=== PATIENT | male | born 1970 | race Caucasian/White ===

== ENCOUNTER 2021-04-08 07:36 | Emergency (ER) | payer OTHER, SELFPAY ==
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
--- NOTE | ~2021-04-08 | XR_ITS ---
EXAMINATION: XR ankle LT min 3V, XR foot LT min 3V DATE: 04/08/2021 08:42 INDICATION: Left ankle and toe injury TECHNIQUE: 1. Anteroposterior, mortise, additional oblique and lateral view of the left ankle were obtained. 2. Dorsoplantar, two oblique and lateral views of the left foot were obtained. COMPARISON: None. FINDINGS: Comminuted fracture of the distal phalanx of the left great toe which involves both the tuft as well as the proximal articular surface. There is approximately 2 mm step-off along the articular surface. There is some gas in the adjacent soft tissues which suggests the possibility of an open/compound fra cture. Otherwise normal alignment of the left foot and ankle. No other fractures identified. Minimal osteoarthritis at the first metatarsophalangeal joint and at the second and third tarsal metatarsal j oints. No ankle joint effusion. IMPRESSION: 1. Comminuted intra-articular fracture of the left first distal phalanx with 2 mm step-off at the art icular surface. Small amount of associated soft tissue gas suggesting this may be open/compound. Reviewed, dictated and finalized at location A. ING APPLICATOR IMPRESSION: 1. Comminuted intra-articular fracture of the left first distal phalanx with 2 mm step-off at the articular surface. Small amount of associated soft tissue ga s suggesting this may be open/compound.
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
--- NOTE | ~2021-04-08 | XR_ITS ---
EXAMINATION: XR knee LT 3V DATE: 04/08/2021 08:42 INDICATION: Left knee pain TECHNIQUE: Anteroposterior, oblique and crosstable lateral views of the left knee were obtained COMPARISON: None. FINDINGS: Alignment is normal. No fracture. Enthesophyte at the proximal pole of the patella. Small joint effu romero at the suprapatellar pouch without layering lipohemarthrosis. Prepatellar soft tissue swelling. IMPRESSION: 1. No acute osseous abnormality. Reviewed, dictated and finalized at location A. SPRAYER
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
[2021-04-08 07:45] VITALS: BP 133/90; PULSE 77; RESP 18; O2SAT 99
--- NOTE | 2021-04-08 07:46 | ECG_ITS ---
Measurements Intervals [place] Rate: 58 P: 55 MI: 167 QRS: 33 QRSD: 105 T: 64 QT: 406 QTc: 401 Interpretive Statements SINUS BRADYCARDIA WITH SINUS ARRHYTHMIA INCOMPLETE RIGHT BUNDLE BRANCH BLOCK BORDERLINE ECG Electronically Signed On 04-09-2021 7:10:27 CONTROLS ENGINEER by Tommy Lyle D.O.
[2021-04-08 07:49] VITALS: BP 128/95; PULSE 94; RESP 16; TEMP 36.3; O2SAT 100
--- NOTE | 2021-04-08 07:55 | PC.NURSE ---
Pt to radiology
--- NOTE | 2021-04-08 08:25 | PC.NURSE ---
Pt returned from radiology. Lab notified pt is back in room.
[2021-04-08 08:28] VITALS: BP 129/87; PULSE 58; RESP 16; O2SAT 98
--- NOTE | 2021-04-08 08:30 | PC.NURSE ---
Lab at bedside.
[2021-04-08 08:34] VITALS: BP 129/87; PULSE 99; RESP 16; O2SAT 99
[2021-04-08 08:41] LABS: Basophils Absolute Auto 0.06 K/mm3 (0.00-0.10); Basophils Percent Auto 0.3 % (0.0-1.0); Eosinophils Absolute Auto 0.06 K/mm3 (0.02-0.50); Eosinophils Percent Auto 0.3 % (1.0-6.0); Hematocrit 40.7 % (40.0-54.0); Hemoglobin 13.9 g/dL (14.0-18.0); Immature Granulocyte Absolute 0.06 K/mm3 (0.00-0.00); Immature Granulocyte Percent A 0.3 % (0.0-0.0); Lymphocytes Absolute Auto 1.24 K/mm3 (1.10-4.50); Lymphocytes Percent Auto 7.1 % (18.0-42.0); Mean Corpuscular HGB Conc 34.2 g/dL (32.0-36.0); Mean Corpuscular Hemoglobin 30.8 pg (27.0-31.0); Mean Corpuscular Volume 90.2 fL (78.0-102.0); Mean Platelet Volume 9.1 fl (8.7-11.0); Monocytes Absolute Auto 0.94 K/mm3 (0.10-0.90); Monocytes Percent Auto 5.4 % (2.0-11.0); Neutrophils Absolute Auto 15.1 K/mm3 (1.7-7.2); Neutrophils Percent Auto 86.6 % (50.0-70.0); Platelet Count Result 252 K/mm3 (150-420); Red Blood Count 4.51 M/mm3 (4.70-6.10); Red Cell Distribution Width 12.7 % (11.6-14.4); White Blood Count 17.5 K/mm3 (4.8-10.8)
[2021-04-08 08:50] LABS: Partial Thromboplastin Time 28.8 SEC (23.90-30.70); Prothrombin Time 10.4 Seconds (9.50-12.10)
[2021-04-08 08:51] LABS: Alanine Aminotransferase 24 U/L (16-63); Albumin Level 3.8 g/dL (3.4-5.0); Alkaline Phosphatase 120 U/L (46-116); Anion Gap 13 mmol/L (8-16); Aspartate Amino Transferase 23 U/L (15-37); Bilirubin,Total 0.4 mg/dL (0.00-1.00); Blood Urea Nitrogen 14 mg/dL (7-18); Calcium 8.9 mg/dL (8.5-10.1); Carbon Dioxide 23 mmol/L (21-32); Chloride 102 mmol/L (98-108); Creatine Kinase 416 U/L (39-308); Estimated CRCL calculation 99 ml/min; Estimated Glomerular Filt Rate > 60; Glucose 95 mg/dL (70-99); Osmolality Calculated 286 mOsm/kg (285-295); Potassium 3.6 mmol/L (3.5-5.1); Sodium 138 mmol/L (136-145); Total Protein 7.1 g/dL (6.4-8.2)
[2021-04-08 08:52] LABS: Ethanol 4 mg/dL (0-6)
[2021-04-08 08:54] LABS: Appearance Urine Clear (Clear); Bilirubin Urine Negative (Negative); Color Urine Yellow (Yellow); Glucose Urine UA Negative (Negative); Ketones Urine Trace (Negative); Leukocyte Esterase Ur Negative (Negative); Nitrate Urine Negative (Negative); Protein Urine Negative (Negative); Specific Grav Ur 1.025 (1.010-1.020); Urobilinogen Urine >=8.0 mg/dL (0.2-1.0)
[2021-04-08 08:56] LABS: Lactic Acid Reflex 0.6 mmol/L (0.4-2.0)
[2021-04-08 09:03] LABS: Amphetamine Screen Urine Positive (Negative); Barbiturate Screen Urine Negative (Negative); Benzodiazepines Screen Urine Negative (Negative); Cannabinoid Screen Urine Positive (Negative); Cocaine Screen Urine Negative (Negative); Methadone Screen Urine Negative (Negative); Opiate Screen Urine Negative (Negative); Phencyclidine Screen Urine Negative (Negative)
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
[2021-04-08 09:17] LABS: Add Urine Microscopic? YES; Bacteria Urine Trace /hpf; Blood Urine Trace-Intact (Negative); RBC Urine 0-2 /hpf (0-2); Squamous Epithelial Cell Urine Rare /hpf (Few); WBC Urine None seen /hpf (0-3)
[2021-04-08 09:18] LABS: Mucus Urine Few /lpf
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
[2021-04-08] MEDS: MORPHINE SULFATE (*CRX) 4 MG/ML INJ IM (09:25)
[2021-04-08] MEDS: SODIUM CHLORIDE 0.9% IV 1,000 ML 999 ML IV CONT (09:34)
[2021-04-08 09:49] VITALS: BP 140/98; PULSE 83; RESP 20; O2SAT 98
--- NOTE | 2021-04-08 09:53 | PC.NURSE ---
SIMON WRAP APPLIED TO LEFT FOOT. PT RESTLESS AND WANTING OFF. SIMON REMOVED. OFFERED OCL SPLINT PT DECLINED.
== END 2021-04-08 10:55 | disposition short-term general hospital (02) ==
PROVIDERS: Emergency Provider Emergency Medicine
DX: S02.0XXA Fracture of vault of skull, initial encounter for closed fracture (principal); S06.6X9A Traumatic subarachnoid hemorrhage with loss of consciousness of unspecified duration, initial encounter; S92.422A Displaced fracture of distal phalanx of left great toe, initial encounter for closed fracture; V86.99XA Unspecified occupant of other special all-terrain or other off-road motor vehicle injured in nontraffic accident, initial encounter
CPT/HCPCS: 36415; 70450; 70486; 71250; 72125; 73562; 73610; 73630; 74176; 80053; 80307; 81001; 82550; 83605; 85025; 85610; 85730; 93005; 96365; 96372; 99285; J0696; J2270; J7030

== ENCOUNTER 2024-02-11 20:11 | Emergency (ER) | payer BC, SELFPAY ==
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
[2024-02-11 20:11] VITALS: BP 0/0; PULSE 0; RESP 0; RESP 14; TEMP 29.6; O2SAT 0
--- NOTE | 2024-02-11 20:30 | PC.NURSE ---
mother Lia Mares, notified to come to the ER. Will be enroute at this time.
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
== END 2024-02-11 21:56 | disposition expired ==
PROVIDERS: Emergency Provider Emergency Medicine
DX: I46.9 Cardiac arrest, cause unspecified (principal); S82.301B Unspecified fracture of lower end of right tibia, initial encounter for open fracture type I or II; S82.831B Other fracture of upper and lower end of right fibula, initial encounter for open fracture type I or II; S90.512A Abrasion, left ankle, initial encounter; V13.4XXA Pedal cycle driver injured in collision with car, pick-up truck or van in traffic accident, initial encounter
CPT/HCPCS: 71045; 99283; J0171